=== PATIENT | female | born 1995 | race Native Hawaiian/Other Pacific Islander ===

== ENCOUNTER 2022-02-22 19:58 | Emergency (ER) | payer OTHER ==
[~2022-02-22] VITALS: Ht 160 cm; Wt 68.0 kg
[2022-02-22 20:00] VITALS: TEMP 101.2
[2022-02-22 21:38] LABS: PLATELET COUNT 294 K/uL (152-353)
[2022-02-22 21:50] LABS: POTASSIUM 3.2 mmol/L (3.6-5.2)
[2022-02-22 22:10] VITALS: BP 105/56
== END 2022-02-22 22:10 | disposition home or self-care (01) ==
LOC: ED 19:58
PROVIDERS: Emergency Medicine Emergency Medical Services
DX: L02.416 Cutaneous abscess of left lower limb (principal); S81.802A Unspecified open wound, left lower leg, initial encounter; S71.102A Unspecified open wound, left thigh, initial encounter; W26.8XXA Contact with other sharp object(s), not elsewhere classified, initial encounter; Y92.89 Other specified places as the place of occurrence of the external cause
CPT/HCPCS: 36415; 80048; 80307; 81002; 81015; 81025; 83605; 85027; 87040; 87070; 87077; 87185; 87186; 87205; 96372; 99283; J0696